=== PATIENT | male | born 1945 | race Caucasian/White ===

== ENCOUNTER 2020-02-07 16:16 | Inpatient (IN) | payer MEDICARE, BC ==
[~2020-02-07] VITALS: Ht 180.3 cm; Wt 70.6 kg
--- NOTE | 2020-02-07 16:32 | NUR ---
DR LIZ IS PRIMARY ORTHO MD PER
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
[2020-02-07] MEDS ORDERED: SODIUM CHLORIDE FLUSH 10ML SYR IVF ONE (17:00)
[2020-02-07 17:26] LABS: ALBUMIN 2.9 g/dL (3.4-5.0); ANION GAP 3 mmol/L (5-15); CALCIUM 8.7 mg/dL (8.5-10.1); CHLORIDE 108 mmol/L (98-107); CREATININE 0.86 mg/dL (0.7-1.3)
--- NOTE | 2020-02-07 17:34 | NUR ---
xray after pain meds
[2020-02-07 17:38] LABS: BASOPHILS % (AUTO) 0 % (0-1); EOSINOPHILS % (AUTO) 1 % (1-7); LYMPHOCYTES % (AUTO) 10 % (22-44); MEAN CORPUSCULAR HEMOGLOBIN 37.3 pg (27.5-34.5); MEAN PLATELET VOLUME 6.6 fL (7.4-10.4); MONOCYTES % (AUTO) 14 % (2-9); NEUTROPHILS % (AUTO) 74 % (42-75); PLATELET COUNT 206 x10^3/uL (130-400); RED BLOOD COUNT 2.65 x10^6/uL (4.38-5.82); RED CELL DISTRIBUTION WIDTH 12.8 % (9.4-14.8)
[2020-02-07] MEDS ORDERED: ONDANSETRON 2MG/ML, 2ML ONE (17:40)
[2020-02-07] MEDS ORDERED: HYDROmorphone 1 MG/ML, 1ML INJ ONE (17:40)
[2020-02-07] MEDS: HYDROmorphone 1 MG/ML, 1ML INJ IVPush PRN ×2 (17:44→19:20)
--- NOTE | 2020-02-07 17:47 | NUR ---
MEDICATED FOR PAIN, GIVEN BLANKETS. VSS
[2020-02-07] MEDS ORDERED: ONDANSETRON 2MG/ML, 2ML IVPush ONE (18:00)
--- NOTE | 2020-02-07 18:50 | NUR ---
REPORT TO NATHANIEL TOM
[2020-02-07 18:52] LABS: INTERNATIONAL NORMALIZED RATIO 0.94 (0.93-1.1)
[2020-02-07 18:53] LABS: MD MORPH REVIEW ONLY
[2020-02-07 18:54] LABS: HYPOCHROMIA 1+
[2020-02-07 18:55] LABS: <PLATELET ESTIMATE> ADEQUATE; LARGE PLATELETS 1+; OVALOCYTES 1+
--- NOTE | 2020-02-07 19:09 | NUR ---
REPORT FROM [facility]. FIRST CONTACT WITH PT. PT WAITING FOR ORTHO ADMIT. C/O INCREASE IN PAIN, NO N/V. VSS. VERY FAINT TIBIAL PULSES PALPATED TO RIGHT LEG. ON WAFFLE MATTRESS, LEG ELEVATED. LEG IS WARM, BRISK CR.
[2020-02-07] MEDS ORDERED: HYDROmorphone 2 MG/ML, 1ML ONE (19:16)
--- NOTE | 2020-02-07 20:10 | NUR ---
CALLING MULTIPLE TIMES, PT CALLING HER NOW.
--- NOTE | 2020-02-07 20:16 | NUR ---
PT SLEEPS INTERMITTENTLY, SAYS IS MORE COMFORTABLE. VSS. ON 2L NC.
[2020-02-07] MEDS ORDERED: ACETAMINOPHEN 325 MG TABLET PO PRN (21:00)
[2020-02-07] MEDS ORDERED: SODIUM CHLORIDE FLUSH 10ML SYR IVF PRN (21:00)
[2020-02-07] MEDS ORDERED: ONDANSETRON ODT 4 MG PO PRN (21:00)
[2020-02-07] MEDS ORDERED: BISACODYL 10 MG SUPP PR PRN (21:00)
[2020-02-07] MEDS ORDERED: POLYETHYLENE GLYCOL 17 GM PACKET PO PRN (21:00)
--- NOTE | 2020-02-07 21:22 | NUR ---
PT WAITING FOR ORTHO BED. VSS. CALL [facility] IN [place].
--- NOTE | 2020-02-07 21:33 | NUR ---
swabbed oil extractor for rapid covid taken to lab. vss.
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
[2020-02-07 23:31] VITALS: BP 168/79
[2020-02-08] MEDS: SODIUM CHLORIDE 0.9% 1,000 ML IV SCH ×3 (00:07→22:19)
[2020-02-08] MEDS: HEPARIN 5,000 UNITS/ML, 1ML SQ SCH ×3 (00:19→16:23)
[2020-02-08] MEDS: morphine SULFATE 10 MG/ML, 1ML IVPush PRN ×2 (05:37→23:11)
[2020-02-08 05:43] LABS: BASOPHILS % (AUTO) 1 % (0-1); EOSINOPHILS % (AUTO) 1 % (1-7); LYMPHOCYTES % (AUTO) 8 % (22-44); MEAN CORPUSCULAR HEMOGLOBIN 37.6 pg (27.5-34.5); MEAN CORPUSCULAR HGB CONC 35.3 g/dL (33.2-36.2); MEAN PLATELET VOLUME 6.8 fL (7.4-10.4); MONOCYTES % (AUTO) 12 % (2-9); NEUTROPHILS % (AUTO) 80 % (42-75); PLATELET COUNT 197 x10^3/uL (130-400); RED BLOOD COUNT 2.45 x10^6/uL (4.38-5.82); RED CELL DISTRIBUTION WIDTH 13.2 % (9.4-14.8)
[2020-02-08 05:54] LABS: ANION GAP 4 mmol/L (5-15); CALCIUM 8.9 mg/dL (8.5-10.1); CHLORIDE 110 mmol/L (98-107)
[2020-02-08 05:55] LABS: CREATININE 0.75 mg/dL (0.7-1.3)
[2020-02-08 06:08] LABS: MD NO
[2020-02-08 07:57] VITALS: BP 157/77
[2020-02-08] MEDS: SENNA/DOCUSATE TABLET PO SCH (08:36)
[2020-02-08] MEDS ORDERED: CHLORHEXIDINE 15 ML UDC ONE (12:44)
[2020-02-08] MEDS ORDERED: LIDOCAINE-MPF 2% ,5ML ONE (12:53)
[2020-02-08] MEDS ORDERED: FENTANYL PF 100 MCG/2ML ONE ×5 (12:53→14:22)
[2020-02-08] MEDS ORDERED: PROPOFOL 10 MG/ML, 20ML ONE (12:53)
[2020-02-08] MEDS ORDERED: CHLORHEXIDINE 15 ML UDC MM ONE (13:00)
[2020-02-08] MEDS ORDERED: DEXAMETHASONE 4 MG/ML, 1ML ONE (13:22)
[2020-02-08] MEDS ORDERED: ONDANSETRON 2MG/ML, 2ML ONE (13:22)
[2020-02-08] MEDS ORDERED: CEFAZOLIN 1,000 MG ONE ×2 (13:23)
[2020-02-08] MEDS ORDERED: ONDANSETRON 2MG/ML, 2ML IVPush PRN (13:30)
[2020-02-08] MEDS ORDERED: HYDROmorphone 1 MG/ML, 1ML INJ IVPush PRN (13:30)
[2020-02-08] MEDS ORDERED: TRANEXAMIC ACID 100 MG/ML, 10ML ONE (13:32)
[2020-02-08] MEDS: FENTANYL PF 100 MCG/2ML IV PRN ×2 (14:25→14:35)
[2020-02-08 18:56] VITALS: BP 159/57
[2020-02-08] MEDS ORDERED: AMLO-211 PO (19:30)
[2020-02-08] MEDS ORDERED: ROSU40TA PO (19:30)
[2020-02-08] MEDS ORDERED: GABA-827 PO (19:30)
[2020-02-08] MEDS ORDERED: CLOP75TA52 PO (19:30)
[2020-02-08] MEDS ORDERED: HYDR20VI3 PO (19:30)
[2020-02-08] MEDS ORDERED: VENL150T PO (19:30)
[2020-02-08] MEDS: CEFAZOLIN PMX 2GM/50ML 50 ML IVPB SCH (23:12)
[2020-02-09] MEDS: HEPARIN 5,000 UNITS/ML, 1ML SQ SCH ×3 (00:28→16:39)
[2020-02-09 01:26] VITALS: BP 140/83
[2020-02-09 04:24] VITALS: BP 132/79
[2020-02-09 06:28] LABS: CHLORIDE 110 mmol/L (98-107)
[2020-02-09 06:30] LABS: BASOPHILS % (AUTO) 0 % (0-1); EOSINOPHILS % (AUTO) 0 % (1-7); LYMPHOCYTES % (AUTO) 11 % (22-44); MEAN CORPUSCULAR HEMOGLOBIN 37.3 pg (27.5-34.5); MEAN CORPUSCULAR HGB CONC 35.1 g/dL (33.2-36.2); MEAN PLATELET VOLUME 7.3 fL (7.4-10.4); MONOCYTES % (AUTO) 13 % (2-9); NEUTROPHILS % (AUTO) 76 % (42-75); PLATELET COUNT 181 x10^3/uL (130-400); RED BLOOD COUNT 1.99 x10^6/uL (4.38-5.82); RED CELL DISTRIBUTION WIDTH 12.8 % (9.4-14.8)
[2020-02-09 06:32] LABS: ANION GAP 6 mmol/L (5-15); CALCIUM 8.5 mg/dL (8.5-10.1); CREATININE 0.65 mg/dL (0.7-1.3)
[2020-02-09] MEDS: CEFAZOLIN PMX 2GM/50ML 50 ML IVPB SCH ×2 (06:34→15:06)
[2020-02-09 06:54] LABS: MD NO
[2020-02-09 07:32] VITALS: BP 142/58
[2020-02-09] MEDS: CLOPIDOGREL 75 MG TABLET PO SCH (10:54)
[2020-02-09] MEDS: SENNA/DOCUSATE TABLET PO SCH (10:54)
[2020-02-09] MEDS: SODIUM CHLORIDE 0.9% 1,000 ML IV SCH (12:02)
[2020-02-09 14:10] VITALS: BP 172/72
[2020-02-09] MEDS: morphine SULFATE 10 MG/ML, 1ML IVPush PRN (19:40)
[2020-02-09 20:09] VITALS: BP 166/70
[2020-02-10] MEDS: HEPARIN 5,000 UNITS/ML, 1ML SQ SCH ×3 (00:30→15:52)
[2020-02-10 01:13] VITALS: BP 166/70
[2020-02-10 05:37] LABS: BASOPHILS % (AUTO) 0 % (0-1); EOSINOPHILS % (AUTO) 0 % (1-7); LYMPHOCYTES % (AUTO) 13 % (22-44); MEAN CORPUSCULAR HEMOGLOBIN 36.9 pg (27.5-34.5); MEAN CORPUSCULAR HGB CONC 34.8 g/dL (33.2-36.2); MEAN PLATELET VOLUME 7.4 fL (7.4-10.4); MONOCYTES % (AUTO) 13 % (2-9); NEUTROPHILS % (AUTO) 74 % (42-75); PLATELET COUNT 195 x10^3/uL (130-400); RED BLOOD COUNT 2.02 x10^6/uL (4.38-5.82); RED CELL DISTRIBUTION WIDTH 12.7 % (9.4-14.8)
[2020-02-10 06:07] LABS: MD NO
[2020-02-10 08:38] VITALS: BP 159/60
[2020-02-10] MEDS: CLOPIDOGREL 75 MG TABLET PO SCH (08:40)
[2020-02-10] MEDS: AMLODIPINE 10 MG TAB PO SCH (08:40)
[2020-02-10] MEDS: SENNA/DOCUSATE TABLET PO SCH (08:41)
[2020-02-10] MEDS: SODIUM CHLORIDE 0.9% 1,000 ML IV SCH (08:50)
[2020-02-10 12:30] VITALS: BP 167/72
[2020-02-10] MEDS: NICOTINE 7 MG/24 HR PATCH.TD24 TD SCH (14:11)
[2020-02-10 21:57] VITALS: BP 172/72
[2020-02-11] MEDS: HEPARIN 5,000 UNITS/ML, 1ML SQ SCH ×3 (01:23→16:44)
[2020-02-11 06:35] LABS: % IRON SATURATION 16 % (20-55); IRON LEVEL 40 mcg/dL (65-175); TOTAL IRON BINDING CAPACITY 258 mcg/dL (250-450)
[2020-02-11] MEDS: AMLODIPINE 10 MG TAB PO SCH (07:47)
[2020-02-11] MEDS: SENNA/DOCUSATE TABLET PO SCH (07:47)
[2020-02-11] MEDS: CLOPIDOGREL 75 MG TABLET PO SCH (07:47)
[2020-02-11 07:48] VITALS: BP 185/67
[2020-02-11 10:34] VITALS: BP 162/65
[2020-02-11 12:05] VITALS: BP 161/66
[2020-02-11] MEDS: NICOTINE 7 MG/24 HR PATCH.TD24 TD SCH (14:15)
[2020-02-11 16:39] VITALS: BP 139/76
[2020-02-11 18:40] VITALS: BP 124/59
== END 2020-02-11 18:55 | DRG 493 ==
LOC: ED 17:01 → EDIP 20:57 → 4NE 23:13
PROVIDERS: ADMIT Internal Medicine; ATTEND Family Medicine
PROC: 0QSG06Z Reposition Right Tibia with Intramedullary Internal Fixation Device, Open Approach (ICD-10-PCS; 2020-02-08)
PROC: 0QSG04Z Reposition Right Tibia with Internal Fixation Device, Open Approach (ICD-10-PCS; principal; 2020-02-08 10:00)
DX: S82.141A Displaced bicondylar fracture of right tibia, initial encounter for closed fracture (principal); M25.00 Hemarthrosis, unspecified joint; D62 Acute posthemorrhagic anemia; S82.401A Unspecified fracture of shaft of right fibula, initial encounter for closed fracture; Z20.828 Contact with and (suspected) exposure to other viral communicable diseases; F32.9 Major depressive disorder, single episode, unspecified; I10 Essential (primary) hypertension; S82.251A Displaced comminuted fracture of shaft of right tibia, initial encounter for closed fracture; F17.210 Nicotine dependence, cigarettes, uncomplicated; W01.0XXA Fall on same level from slipping, tripping and stumbling without subsequent striking against object, initial encounter; Z96.643 Presence of artificial hip joint, bilateral; Z86.718 Personal history of other venous thrombosis and embolism; Z79.899 Other long term (current) drug therapy; Z88.0 Allergy status to penicillin; Z88.5 Allergy status to narcotic agent; Z79.01 Long term (current) use of anticoagulants; Z79.891 Long term (current) use of opiate analgesic
CPT/HCPCS: 36415; 76000; 80048; 82040; 83540; 83550; 85014; 85018; 85025; 85610; 85730; 86850; 86900; 86923; 87635; 96374; 96375; 96376; 99285; C1713; G0378; J0690; J1100; J1170; J1644; J2405; J2704; J3010; J2270; J7030